=== PATIENT | female | born 1990 | race Caucasian/White ===

== ENCOUNTER → 2017-07-03 16:03 | Outpatient (CLI) | payer BC, SELFPAY ==
[2017-07-03 18:09] LABS: Chlamydia Trachomatis by PCR Negative (Negative); Neisserai gonorrhoeae by PCR Negative (Negative); Probe Check PASS; Sample Adequacy Control PASS; Specimen Processing Control PASS
[2017-07-06 14:21] LABS: HPV Reflexed? NOT INDICATED
== END ==
PROVIDERS: Visit Provider Obstetrics & Gynecology
DX: Z12.4 Encounter for screening for malignant neoplasm of cervix (principal); Z11.3 Encounter for screening for infections with a predominantly sexual mode of transmission; Z34.81 Encounter for supervision of other normal pregnancy, first trimester
CPT/HCPCS: 87491; 87591; 88175; G0145

== ENCOUNTER → 2017-07-12 11:58 | Outpatient (CLI) | payer BC, SELFPAY ==
[2017-07-12 13:39] LABS: Absolute Lymphocyte Count 1.83 X10^3/ul (0.83-4.51); Absolute Neutrophil Count 8.4 X10^3/uL (2.0-7.7); Basophil# 0.01 X10^3/uL; Basophil% 0.1 % (0-1); Eosinophil# 0.17 X10^3/uL; Eosinophils% 1.6 % (0-5); Hematocrit 41.5 % (37-47); Hemoglobin 14.1 g/dl (12.0-15.0); Lymphocyte # 1.83 X10^3/ul (4.0); Lymphocyte % 16.7 % (19-41); Mean Corpuscular Volume 88.3 fL (81-99); Mean Platelet Vol. 9.9 fl (6.2-12.0); Monocyte# 0.52 X10^3/uL; Monocyte% 4.7 % (0-10); Neutrophil % 76.7 % (47-70); Platelet Count 321 K/mm3 (150-450); RBC Distribution Width CV 13.3 % (11.6-14.6); RBC Distribution Width SD 43.2 fl (35.1-43.9)
[2017-07-12 13:40] LABS: POSITIVE COUNT NO; POSITIVE DIFFERENTIAL NO; POSITIVE MORPHOLOGY NO
[2017-07-12 13:46] LABS: Color, Urine Yellow (Yellow); Glucose, Dipstick Normal (Normal); Ketone-Dipstick 15 mg/dl (Negative); Leukocyte Esterase-Dipstick Negative /ul (Negative); Nitrite-Dipstick Negative (Negative); Occult Blood-Urine Negative /ul (Negative); Protein-Dipstick Negative (Negative); Urine Bilirubin Dipstick Negative (Negative); Urine Clarity Clear (Clear); Urine Urobilinogen Normal (Normal)
[2017-07-12 14:00] LABS: Thyroid Stim Hormone (TSH) 1.75 uIU/mL (0.358-3.74)
[2017-07-12 14:38] LABS: HIV - WCH Non-Reactive (Nonreactive); Rubella IgG 320.6 IU/mL
[2017-07-13 09:16] LABS: HEPATITIS B SURFACE AG Negative (Negative)
[2017-07-13 09:17] LABS: Hep C Antibodies <0.1 s/co ratio (0.0-0.9)
[2017-07-14 01:13] LABS: Prenatal RPR NONREACTIVE (NONREACTIVE)
== END ==
PROVIDERS: Visit Provider Obstetrics & Gynecology
DX: Z34.81 Encounter for supervision of other normal pregnancy, first trimester (principal)
CPT/HCPCS: 36415; 81002; 84443; 85025; 86703; 86762; 86803; 87340

== ENCOUNTER → 2017-12-04 08:36 | Outpatient (CLI) | payer BC, SELFPAY ==
[2017-12-04 11:00] LABS: Hematocrit 38.2 % (37-47); Hemoglobin 13.1 g/dl (12.0-15.0); Mean Corp Hgb Conc 34.3 g/gl (32-36); Mean Corpuscular Hgb 30.7 pg (27.0-32.0); Mean Corpuscular Volume 89.5 fL (81-99); Mean Platelet Vol. 10.3 fl (6.2-12.0); Platelet Count 258 K/mm3 (150-450); RBC Distribution Width CV 14.1 % (11.6-14.6); RBC Distribution Width SD 45.1 fl (35.1-43.9); Red Blood Count 4.27 M/mm3 (4.2-5.4); White Blood Count 11.4 K/mm3 (4.4-11.0)
[2017-12-04 11:02] LABS: Scan Indicated on CBC? Y/N NO
[2017-12-04 11:11] LABS: Glucose Challenge Gest 1H 50g 134 mg/dL (70-140)
== END ==
PROVIDERS: Visit Provider Obstetrics & Gynecology
DX: Z34.83 Encounter for supervision of other normal pregnancy, third trimester (principal)
CPT/HCPCS: 36415; 82950; 85027

== ENCOUNTER → 2018-01-29 13:48 | Outpatient (CLI) | payer BC, SELFPAY ==
--- OUTSIDE RECORDS SUMMARY | 2018-03-13 11:07 | XMS RPT_ITS ---
:1990 Author Organization OHIP Support Name Relationship Address Phone [facility] Unavailable [address] [place] [address] FELTER, CINTHIA/JULIUS Unavailable [address] + [place] [address] MORENO MARIE Unavailable [address] + [place], [place] [id number] [place] [address] [facility] Unavailable [address] [place] [address] FELTER, CINTHIA/JULIUS Unavailable [address] + [place] [address] MORENO MARIE Unavailable [address] + [place] [address] [facility] Unavailable / [address] [place] [address] FELTER, CINTHIA/JULIUS Unavailable [address] + [place] [address] [facility] Unavailable / [address] [place] [address] FELTER, CINTHIA/JULIUS Unavailable [address] + [place] [address] [facility] Unavailable / [address] [place] [address] FELTER, CINTHIA/JULIUS Unavailable [address] + [place] [address] [facility] Unavailable / [address] [place] [address] FELTER, CINTHIA/JULIUS Unavailable [address] + [place] [address] Care Team Providers Name Role Phone DR. JADON KOROMA DO Primary Care Unavailable CADE ESPINAL, DR. DUNN Attending Unavailable Joe Jefferson Attending Unavailable Joe Jefferson Referring Unavailable Melissa Weathers Attending Unavailable Melissa Weathers Attending Unavailable Melissa Weathers Attending Unavailable Melissa Weathers Attending Unavailable Melissa Weathers Attending Unavailable Melissa Weathers Referring Unavailable PROBLEMS PROBLEMS DATE TYPE CONDITION / CODE ATTENDING STATUS SOURCE 01/29/2018 Unknown Z36.85 - Encounter Melissa Weathers Active [facility] for Community screening for Hospital Streptococcus B / Repository Z36.85(ICD-10) 12/04/2017 Unknown Z34.83 - Encounter Melissa Weathers Active [place] for supervision of Community other normal Hospital , third Repository trimester / Z34.83(ICD-10) 07/12/2017 Unknown Z34.81 - Encounter Melissa Weathers Active [facility] for supervision of Community other normal Hospital , first Repository trimester / Z34.81(ICD-10) 07/07/2017 Unknown Z12.4 - Encounter Melissa Weathers Active [facility] for screening for Community malignant neoplasm Hospital of cervix / Repository Z12.4(ICD-10) PROCEDURES PROCEDURES No Procedure Records FoundRESULTS RESULTS CBC-COMPLETE BLOOD CNT Collected: 02/12/2018 Status: F Source: [place]EL[place] NO DIFF 1:24 PM [facility] REPOSITORY TYPE CODE TESTS RESULT OUT OF RANGE REFERENCE UNITS LAB L100.1000 4.4-11.0 K/mm3 Normal WBC 9.7 LAB L100.1200 4.2-5.4 M/mm3 Low RBC 4.14 LAB L100.1300 12.0-15.0 g/dl Normal HGB 12.2 LAB L100.1400 37-47 % Low HCT 36.1 LAB L100.1500 81-99 fL Normal MCV 87.2 LAB L100.1600 27.0-32.0 pg Normal MCH 29.5 LAB L100.1700 32-36 g/gl Normal MCHC 33.8 LAB L100.1810 11.6-14.6 % Normal RDW CV 14.0 LAB L100.1820 35.1-43.9 fl Normal RDW SD 43.5 LAB L100.1900 150-450 K/mm3 Normal PLT 220 LAB L100.2000 6.2-12.0 fl Normal MPV 10.6 Performed By: #### L100.0500 #### [facility] [place], [address] PROTHROMBIN TIME W/INR Collected: 02/12/2018 Status: F Source: [place]ELI 1:24 PM [facility] REPOSITORY TYPE CODE TESTS RESULT OUT OF RANGE REFERENCE UNITS LAB L300.4150 11.7-14.9 SECONDS Normal PROTIME 12.5 LAB L300.4200 Normal INR 0.9 Performed By: #### L300.3900, L300.4310 #### [facility] [address] [place], [address] PARTIAL THROMBOPLAST Collected: 02/12/2018 Status: F Source: [place] TIME 1:24 PM [facility] REPOSITORY TYPE CODE TESTS RESULT OUT OF RANGE REFERENCE UNITS LAB L300.4310 24.1-36.2 Seconds Normal PTT 24.6 Performed By: #### L300.3900, L300.4310 #### [facility] [address] [place], [address] SERUM CREATININE AND Collected: 02/12/2018 Status: F Source: [place] GFR 1:24 PM [facility] REPOSITORY TYPE CODE TESTS RESULT OUT OF RANGE REFERENCE UNITS LAB L501.1100 0.55-1.02 mg/dL Low 0.44 CREAT,SERUM Result Comment: The validity of the calculated GFR AND GFRAA in patients over 70 years has not been determined. Clinical correlation is essential. LAB L501.1110 >60 mL/min Normal EST GFR 181 Result Comment: Non- GFR Calc LAB L501.1115 >60 mL/min Normal EST GFR - AA 220 Result Comment: GFR Calc Performed By: #### L501.1105, L501.1400, L501.4100, L501.4405 #### [facility] [address] [place], [address] URIC ACID Collected: 02/12/2018 Status: F Source: [place]ELI 1:24 PM [facility] REPOSITORY TYPE CODE TESTS RESULT OUT OF RANGE REFERENCE UNITS LAB L501.1400 2.6-6.0 mg/dL Normal URIC 3.7 Result Comment: The drugs N-Acetylcysteine and Metamizole may falsely depress this assay. Performed By: #### L501.1105, L501.1400, L501.4100, L501.4405 #### [facility] [address] [facility] [place], [address] AST(SGOT) Collected: 02/12/2018 Status: F Source: [place]ELI 1:24 PM [facility] REPOSITORY TYPE CODE TESTS RESULT OUT OF RANGE REFERENCE UNITS LAB L501.4100 15-37 U/L Low AST 13 Performed By: #### L501.1105, L501.1400, L501.4100, L501.4405 #### [facility] [address] [place], [address] ALANINE AMINOTRANSFERAS Collected: 02/12/2018 Status: F Source: FELI (SGPT) 1:24 PM [facility] REPOSITORY TYPE CODE TESTS RESULT OUT OF RANGE REFERENCE UNITS LAB L501.4405 13-56 U/L Normal ALT 18 Performed By: #### L501.1105, L501.1400, L501.4100, L501.4405 #### [facility] [place], [address] PROTEIN+CREATININE Collected: Status: F Source: FELI RATIO,URINE 02/12/2018 1:15 PM [facility] REPOSITORY TYPE CODE TESTS RESULT OUT OF RANGE REFERENCE UNITS LAB L501.1200 NO RANGE EST. mg/dL Normal UR CREAT 76.40 LAB L501.1930 <11.9 mg/dL High 16.3 PROTEIN,UR.R AN. LAB L501.1940 0-200 mg/g CRE High PROT:CRE 213 RATIO Performed By: #### L501.0900 #### [facility] [place], [address] Observed: 01/29/2018 Status: F Source: FELI CULTURE, GROUP B 1:30 PM [facility] STREPTOCOCCUS REPOSITORY Comments: VAGINAL/RECTAL PATI Culture ORGANISM 1: Streptococcus agalactiae (B) Amount Growth Growth Streptococcus agalactiae (B): REACTION Ampicillin $ <=0.25 S Clindamycin $$ <=0.25 S Inducable Clindamycin Resistan - Linezolid $$$$ <=2 S Vancomycin $ 0.5 S (NF) indicates non-formulary drug at [facility]. Approval by Infectious Disease Specialist required before non-formulary drugs may be ordered and/or dispensed. * CLSI guidelines does not recommend testing of cephalosporins. This interpretation is deduced from Beta-lactam/penicillin results. Performed By: #### M100.1800 #### [facility] [address] [place], [place], [address] CBC-COMPLETE BLOOD CNT Collected: 12/04/2017 Status: F Source: [place]EL[place] NO DIFF 8:45 AM [facility] REPOSITORY TYPE CODE TESTS RESULT OUT OF RANGE REFERENCE UNITS LAB L100.1000 4.4-11.0 K/mm3 High WBC 11.4 LAB L100.1200 4.2-5.4 M/mm3 Normal RBC 4.27 LAB L100.1300 12.0-15.0 g/dl Normal HGB 13.1 LAB L100.1400 37-47 % Normal HCT 38.2 LAB L100.1500 81-99 fL Normal MCV 89.5 LAB L100.1600 27.0-32.0 pg Normal MCH 30.7 LAB L100.1700 32-36 g/gl Normal MCHC 34.3 LAB L100.1810 11.6-14.6 % Normal RDW CV 14.1 LAB L100.1820 35.1-43.9 fl High RDW SD 45.1 LAB L100.1900 150-450 K/mm3 Normal PLT 258 LAB L100.2000 6.2-12.0 fl Normal MPV 10.3 Performed By: #### L100.0500 #### [facility] [address] [place], [address] GLUCOSE CHALLENGE GEST Collected: 12/04/2017 Status: F Source: FELI 1H 50G 8:45 AM [facility] REPOSITORY TYPE CODE TESTS RESULT OUT OF RANGE REFERENCE UNITS LAB L501.0250 70-140 mg/dL Normal GLU GEST 134 50g 1H Performed By: #### L501.0250 #### [facility] [address] [facility] [place], [address] CBC W/DIFF, AUTOMATED Collected: 07/12/2017 Status: F Source: [place]ELI 12:09 PM [facility] REPOSITORY TYPE CODE TESTS RESULT OUT OF RANGE REFERENCE UNITS LAB L100.1000 4.4-11.0 K/mm3 Normal WBC 11.0 LAB L100.1200 4.2-5.4 M/mm3 Normal RBC 4.70 LAB L100.1300 12.0-15.0 g/dl Normal HGB 14.1 LAB L100.1400 37-47 % Normal HCT 41.5 LAB L100.1500 81-99 fL Normal MCV 88.3 LAB L100.1600 27.0-32.0 pg Normal MCH 30.0 LAB L100.1700 32-36 g/gl Normal MCHC 34.0 LAB L100.1810 11.6-14.6 % Normal RDW CV 13.3 LAB L100.1820 35.1-43.9 fl Normal RDW SD 43.2 LAB L100.1900 150-450 K/mm3 Normal PLT 321 LAB L100.2000 6.2-12.0 fl Normal MPV 9.9 LAB L100.2100 47-70 % High NEUT% 76.7 LAB L100.2200 19-41 % Low LY% 16.7 LAB L100.2300 0-10 % Normal MONO% 4.7 LAB L100.2400 0-5 % Normal EO% 1.6 LAB L100.2500 0-1 % Normal BASO% 0.1 LAB L100.2550 0.0-0.9 % Normal IM GRAN % 0.200 Result Comment: IG% - Immature Granulocytes (promyelocytes, myelocytes and metamyelocytes) > 1% indicates that a LEFT SHIFT is Present. LAB L100.2620 2.0-7.7 X10 3/uL High Absolute Neut 8.4 LAB L100.2720 0.83-4.51 X10 3/ul Normal Absolute Lymph 1.83 Performed By: #### L100.0100 #### [facility] [address] [place], [address] URINALYSIS, ROUTINE Collected: 07/12/2017 Status: F Source: [place]EL[place] (DIPSTICK) 12:09 PM [facility] REPOSITORY Order Comment: How was Urine Obtained? Urine, Random TYPE CODE TESTS RESULT OUT OF RANGE REFERENCE UNITS LAB L400.3000 Yellow COLOR Normal Yellow LAB L400.3050 Clear Normal CLARITY Clear LAB L400.3200 Normal mg/dl Normal GLUCOSE, UR Normal LAB L400.3300 Negative mg/dL Normal BILIRUBIN URINE Negative LAB L400.3400 Negative mg/dl High 15 KETONE UR LAB L400.3465 1.002-1.030 Normal SP.GR. DIPSTX 1.010 LAB L400.3550 5.0 - 8.0 pH UR Normal 6.0 LAB L400.3600 Negative mg/dl PROT Normal DIPSTX Negative LAB L400.3700 Normal mg/dl Normal UROBILI Normal LAB L400.3750 Negative Normal NITRITE UR Negative LAB L400.3780 Negative /ul Normal OCCULT BLOOD-UR Negative LAB L400.3800 Negative /ul LEUK Normal ESTERASE Negative Performed By: #### L400.2010 #### [facility] [address] [place], [place], [address] THYROID STIM HORMONE Collected: 07/12/2017 Status: F Source: [place] (TSH) 12:09 PM [facility] REPOSITORY TYPE CODE TESTS RESULT OUT OF RANGE REFERENCE UNITS LAB L501.9520 0.358-3.74 uIU/mL Normal TSH 1.75 Performed By: #### L501.9520 #### [facility] [address] [place], [place], [address] T AND S-NO Collected: 07/12/2017 Status: F Source: [place] CHARGE W/PNP 12:09 PM [facility] REPOSITORY Order Comment: Reason for Type AND Screen/Red Cells: Surgery? N TYPE CODE TESTS RESULT OUT OF RANGE REFERENCE UNITS LAB B10.0800 B Normal BLOOD POSITIVE TYPE GEL LAB B100.4050 Normal Ab SCREEN NEGATIVE GEL Performed By: #### B100.7550 #### [facility] [address] [place], [place], [address] RUBELLA IGG Collected: 07/12/2017 Status: F Source: [place] 12:09 PM [facility] REPOSITORY TYPE CODE TESTS RESULT OUT OF RANGE REFERENCE UNITS LAB L509.4000 IU/mL Normal Rubella IgG 320.6 Result Comment: Antibody results Interpretation of Immune Status < 5 IU/ml Presumed Non-immune 5 - < 10 IU/ml Equivocal > or = 10 IU/ml Presumed Immune Performed By: #### L509.4000, L3890.6005 #### [facility] [address] [facility] [place], [place], [id number] HIV - WCH Collected: 07/12/2017 Status: F Source: [place] 12:09 PM [facility] REPOSITORY TYPE CODE TESTS RESULT OUT OF RANGE REFERENCE UNITS LAB L3890.6005 Nonreactive Normal HIV - [facility] Non-Reactive Performed By: #### L509.4000, L3890.6005 #### [facility] [address] [place], [place], [id number] HEPATITIS B SURFACE Collected: 07/12/2017 Status: F Source: [place] AG 12:09 PM [facility] REPOSITORY TYPE CODE TESTS RESULT OUT OF RANGE REFERENCE UNITS LAB L3100.0400 Negative Normal HB Negative SURF AG Result Comment: Performed at: [address] [id number] Supervisor [employer]: Edwardo Whelan PhD, Phone: [phone] Performed By: #### L3100.0390, L3100.0625 #### [facility] (refer to report for specific site) refer to report for address and phone number HEPATITIS C ANTIBODIES Collected: 07/12/2017 Status: F Source: [place] 12:09 PM [facility] REPOSITORY TYPE CODE TESTS RESULT OUT OF RANGE REFERENCE UNITS LAB L3100.0650 0.0-0.9 s/co ratio Normal HEP C AB <0.1 Result Comment: Negative: < 0.8 Indeterminate: 0.8 - 0.9 Positive: > 0.9 The CDC recommends that a positive HCV antibody result be followed up with a HCV Nucleic Acid Amplification test (362901). Performed By: #### L3100.0390, L3100.0625 #### [facility] (refer to report for specific site) refer to report for address and phone number RPR Collected: 07/12/2017 Status: F Source: [place] 12:09 PM [facility] REPOSITORY TYPE CODE TESTS RESULT OUT OF REFERENCE UNITS RANGE LAB L700.5100 NONREACTIVE Normal RPR NONREACTIVE Performed By: #### L700.5100 #### [facility] [address] [place], [address] CT/NG WCH BY PCR Collected: 07/03/2017 Status: F Source: [place] 11:30 AM [facility] REPOSITORY TYPE CODE TESTS RESULT OUT OF RANGE REFERENCE UNITS LAB L8200.2100 Negative Normal Chlam Negative Trac PCR LAB L8200.2200 Negative Normal NG by Negative PCR Performed By: #### L8200.2000 #### [facility] [address] [place], [address] PAP I-G W/RFX HRHPV Collected: 07/03/2017 Status: F Source: [place] 11:30 AM [facility] REPOSITORY Order Comment: CYTOLOGY INFORMATION: - CLINICAL INFORMATION: - DATE LMP/MENOPAUSE: LMP/ NOT GIVEN - COLLECTION VIAL: Thin Prep Vial - SQL BI DEVELOPER SOURCE: CERVICAL/ENDOCERVICAL - COLLECTION TECHNIQUE: BRUSH/SPATULA Specimen Comment: [id number] Specimen Comment: No. of containers..01 ThinPrep Vial TYPE CODE TESTS RESULT OUT OF RANGE REFERENCE UNITS LAB L7400.0800 . Normal DIAGN Comment Result Comment: NEGATIVE FOR INTRAEPITHELIAL LESION AND MALIGNANCY. LAB L7400.0900 . Normal ADEQ Comment Result Comment: Satisfactory for evaluation. Endocervical and/or squamous metaplastic cells (endocervical component) are present. LAB L7400.1400 . Normal PERFORM Comment Result Comment: Dank Deng, Sign Manufacturer (ASCP) LAB L7400.2575 . Normal TEST METHOD Comment Result Comment: This liquid based ThinPrep(R) pap test was screened with the use of an image guided system. LAB L7400.2600 . Normal . COMM LAB L7400.2700 . Normal PAPSMR Comment Result Comment: The Pap smear is a screening test designed to aid in the detection of premalignant and malignant conditions of the uterine cervix. It is not a diagnostic procedure and should not be used as the sole means of detecting cervical cancer. Both false-positive and false-negative reports do occur. LAB L7400.2800 . Normal HPV RFLX Comment Result Comment: The HPV DNA reflex criteria were not met with this specimen result therefore, no HPV testing was performed. Performed at: [facility] [id number] Supervisor [employer]: Taylor Navas MD, Phone: [phone] Performed By: #### L7400.0350 #### [facility] (refer to report for specific site) refer to report for address and phone number VARIS Collected: 05/16/2017 Status: F Source: [facility] 10:50 AM [facility] REPOSITORY TYPE CODE TESTS RESULT OUT OF REFERENCE UNITS RANGE LAB VARIS(LOIN C) Varicella Imm Pos St Result Comment: This immune status assay detects antibody to Varicella Zoster virus. Interpret results in conjunction with clinical history. Positive: Reactive for antibodies to Varicella IgG. If clinically indicated, order Varicella IGM to rule out recent infection. Equivocal: Equivocal for antibodies to Varicella IgG. Suggest repeat testing in 10-14 days. Negative: Non-reactive for antibodies to Varicella IgG. Sera will be held 4-6 weeks if further testing is required. Performed By: #### VARIS #### [place] [address] ALLERGIES ALLERGIES DATE TYPE / CODE NAME / CODE REACTION SEVERITY SOURCE 02/16/2018 Drug No Known Unknown [facility] Allergy/4160 Allergies/F00 Hospital [address]96(SNOMED 8416081(RXNOR Repository CT) M) ENCOUNTERS ENCOUNTERS ADMIT/DISCHARGE ACCOUNT NUMBER ADMITTING ENCOUNTER LOCATION SOURCE CLASS 02/16/2018/02/17/[id number] ding:WPOUTRo Repository om: WP014 02/12/2018 [id number] Ambulatory [facility] ding:WOBLAB Repository 01/29/2018 [id number] Ambulatory [facility] ding:LABSPEC Repository 01/23/2018/01/24/20 [id number] Ambulatory BBuilding:[address] Repository 12/04/2017 [id number] Ambulatory [facility] ding:WOBLAB Repository 07/12/2017 [id number] Ambulatory [facility] ding:WOBLAB Repository 07/03/2017 [id number] Ambulatory [facility] ding:LABSPEC Repository PAYERS PAYERS ENCOUNTER GUARANTOR PAYER SUBSCRIBER SOURCE 02/16/2018 NA AGUILARS225 Primary MORENO SANDSDOB: [place] Insurance:[place]HE[place]olic [id number] Number: Hospital [address]Vak: (330) [id number] Repository [phone] () Date:2963-42-10QK [address] [place] [address]JT: 02/16/2018 Secondary NOT GIVENUNK [facility] Insurance:SELF PAY [facility] Effective Repository Date:2018-02-16 02/12/2018 NA CONNER25 Primary MORENO SANDSDOB: [place] Insurance:ANTHEMPolic [id number] Number: Hospital [id number]: (330) [id number] Repository [phone] () Date:0090-74-16QR [address] [place] [address]BO: 02/12/2018 Secondary NOT GIVENUNK [place] Insurance:SELF PAY [facility] Number: Effective Repository Date:2018-02-12 01/29/2018 NA CONNER25 Primary MORENO SANDSDOB: [place] Insurance:ANTHEMPolic [id number] Number: Hospital [address]Wtb: (330) [id number] Repository [phone] () Date:5418-44-54QM [address]TXKTG [place] [address]YH: 01/29/2018 Secondary NOT GIVENUNK [place] Insurance:SELF PAY [facility] Number: Effective Repository Date:2018-01-29 01/23/2018 NA DOUGHERTYOB: Primary NA AGUILARSDOB: [place] [facility] Insurance:ANTHEM Floxx [id number] [facility] Repository [place], [place] Number: [place], [place] [address]Hlo: ([phone] [id number]: (HP) Date:2018-01-23 [phone] (HP)Tel: ([phone]) Name:[facility] LAMIN () MAI Lopez [address]QW: 12/04/2017 NA ESPINOZA Primary CONWAY SANDSDOB: [place] Insurance:ANTHEMPolic [id number] Number: Hospital [address]Owj: 330 [id number] Repository [phone] (HP) Date:9686-63-09XJ [address] [address]AH: 12/04/2017 Secondary NOT GIVENUNK [place] Insurance:SELF PAY [facility] Number: Effective Repository Date:2017-12-04 07/12/2017 NA ESPINOZA Primary CONWAY SANDSDOB: [place] Insurance:ANTHEMPolic [id number] Number: Hospital [address]Hbq: 330 [id number] Repository [phone] () Date:3827-60-48HS [address] [address]KJ: 07/12/2017 Secondary NOT GIVENUNK [place] Insurance:SELF PAY [facility] Number: Effective Repository Date:2017-07-12 07/03/2017 NA ESPINOZA S Primary [facility] [place] Insurance:[place] Number: Hospital [id number]: . (HP) [id number] Repository Date:5670-28-48YW [address] [address]RH: 07/03/2017 Secondary NOT GIVENUNK [place] Insurance:SELF PAY [facility] Number: Effective Repository Date:2017-07-03
== END ==
PROVIDERS: Visit Provider Obstetrics & Gynecology
DX: Z36.85 Encounter for antenatal screening for Streptococcus B (principal)
CPT/HCPCS: 87077; 87081; 87186

== ENCOUNTER → 2018-02-12 13:21 | Outpatient (CLI) | payer BC, SELFPAY ==
[2018-02-12 13:53] LABS: Protein, Urine (Random) 16.3 mg/dL (<11.9); Protein:Creat Ratio 213 mg/g CRE (0-200)
[2018-02-12 13:58] LABS: Hematocrit 36.1 % (37-47); Hemoglobin 12.2 g/dl (12.0-15.0); Mean Corp Hgb Conc 33.8 g/gl (32-36); Mean Corpuscular Hgb 29.5 pg (27.0-32.0); Mean Corpuscular Volume 87.2 fL (81-99); Mean Platelet Vol. 10.6 fl (6.2-12.0); Platelet Count 220 K/mm3 (150-450); RBC Distribution Width SD 43.5 fl (35.1-43.9); Red Blood Count 4.14 M/mm3 (4.2-5.4); White Blood Count 9.7 K/mm3 (4.4-11.0)
[2018-02-12 14:02] LABS: Scan Indicated on CBC? Y/N NO
[2018-02-12 14:13] LABS: International Normalized Ratio 0.9; Prothrombin Time (Protime)PT. 12.5 SECONDS (11.7-14.9)
[2018-02-12 14:14] LABS: Partial Thromboplast Time 24.6 Seconds (24.1-36.2)
[2018-02-12 14:28] LABS: AST(SGOT) 13 U/L (15-37); Alanine Aminotransfer ALT/SGPT 18 U/L (13-56); Creatinine, Serum 0.44 mg/dL (0.55-1.02); EST Glomerular Filtration Rate 181 mL/min (>60); Est Glom Filt Rate - Afr Amer 220 mL/min (>60); Uric Acid 3.7 mg/dL (2.6-6.0)
== END ==
PROVIDERS: Visit Provider Obstetrics & Gynecology
DX: O13.9 Gestational [pregnancy-induced] hypertension without significant proteinuria, unspecified trimester (principal)
CPT/HCPCS: 36415; 82565; 82570; 84156; 84450; 84460; 84550; 85027; 85610; 85730

== ENCOUNTER 2018-02-16 17:55 | Outpatient (CLI) | payer BC, SELFPAY ==
[2018-02-16 18:41] VITALS: BMI 34.5
--- NOTE | 2018-02-17 08:01 | OB.TRI.HP_ITS ---
History of Present Illness Date of Service: 02/16/18 Was patient seen by the physician?: No Reason For Visit: RULE OUT LABOR Date of Service: 02/16/18 Final CYDNEY: 02/26/18 Final CYDNEY Source: US <20 weeks Gestational age: 38 Weeks and 5 Days History of Present Illness: c/o contractions Allergies No Known Allergies Allergy (Verified 02/16/18 18:42) Physical Exam General: Alert, Oriented x3, Cooperative, No apparent distress Cardiovascular: Regular rate, Regular Rhythm Lungs: Clear to auscultation, Normal air movement Abdomen: Soft, Non Tender, Non-Distended, Gravid, Appropriate for Gestational Age Extremities:: No edema Neurological: Neuro grossly intact RELIGIOUS EDUCATION COORDINATOR: Normal external genitalia Estimated gestational size: Appropriate for gestational size Presentation: Cephalic Cervix Dilation (cm): 1 Station: -3 Effacement (%): 25 NST - FHR Rate Baby A Baseline: 120s Variability:: Moderate Accelerations:: 15 x 15 Decelerations:: None, Early NST Reactive:: Yes, Appropriate for gestational age FHR Category:: Category I Uterine Activity:: irregular Impression/Plan Observed with no cervical change and no regular contraction pattern. No signs of SROM. Reassuring FHR tracing.
--- OUTSIDE RECORDS SUMMARY | 2018-05-23 07:36 | XMS RPT_ITS ---
:1990 Author Organization OHIP Support Name Relationship Address Phone [facility] Unavailable [address] [place] [address] FELTER, CINTHIA/JULIUS Unavailable [address] + [place] [address] MORENO MARIE Unavailable [address] + [place] [address] [facility] Unavailable [address] [place] [address] FELTER, CINTHIA/JULIUS Unavailable [address] + [place] [address] MORENO MARIE Unavailable [address] + [place] [address] [facility] Unavailable [address] [place] [address] FELTER, CINTHIA/JULIUS Unavailable [address] + [place] [address] MORENO MARIE Unavailable [address] + [place] [address] [facility] Unavailable / [address] [place] [address] FELTER, CINTHIA/JULIUS Unavailable [address] + [place] [address] FELTER, CINTHIA Unavailable Unavailable Unavailable [facility] Unavailable / [address] [place] [address] FELTER, CINTHIA/JULIUS Unavailable [address] + [place] [address] [facility] Unavailable / [address] [place] [address] FELTER, CINTHIA/JULIUS Unavailable [address] + [place] [address] [facility] Unavailable / [address] [place] [address] FELTER, CINTHIA/JULIUS Unavailable [address] + [place] [address] Care Team Providers Name Role Phone CADE ESPINAL, DR. DUNN Attending Unavailable GA DO, DR. DIOP Primary Care Unavailable CADE ESPINAL, DR. DUNN Attending Unavailable PARUL ELAINE Primary Care Unavailable Seals, Joe Attending Unavailable Seals, Joe Referring Unavailable Benekos, Melissa Attending Unavailable Benekos, Melissa Referring Unavailable Benekos, Melissa Attending Unavailable Benekos, Melissa Attending Unavailable Benekos, eMlissa Attending Unavailable Benekos, Melissa Admitting Unavailable Benekos, Melissa Attending Unavailable Benekos, Melissa Referring Unavailable Yumiko Zuleta Primary Care Unavailable Cade, Melissa Attending Unavailable PROBLEMS PROBLEMS DATE TYPE CONDITION / CODE ATTENDING STATUS SOURCE 01/29/2018 Unknown Z36.85 - Encounter Melissa Weathers Active [place] [facility] screening for [facility] Streptococcus B / Repository Z36.85(ICD-10) 12/04/2017 Unknown Z34.83 - Encounter Melissa Weathers Active [place]eli for [...] PROCEDURES PROCEDURES No Procedure Records FoundRESULTS RESULTS DISCHARGE INSTRUCTION Observed: 2018 Status: F Source: FELI 3:23 PM [facility] HOSPITAL REPOSITORY [facility] Medical Records Department [address] [place] [address] Instructions for Home/Discharge Instructions 03/01/18 1521 MR#: [id number] Acct: [id number] Name: NA MARIE Rep #: [id number] : 1990 28 From: Melissa Weathers MD PCP: Status: ADM IN Discharge Diet: No Restrictions Discharge Activity: May Shower, May Take a Tub Bath Return to work on:: 04/16/18 May resume sexual activity in: 4-6 weeks Additional Instructions: If you experience any of the following, contact your healthcare provider. * Bleeding that soaks a pad every hour for 2 hours * Fever 100.4 or higher * Unrelieved abdominal pain * Problems urinating (including inability to urinate or burning while urinating). * Visual changes * Severe headache * Flu-like symptoms * Pain or redness in one of both of your breasts * Pain, warmth, tenderness or swelling in your legs, especially the calf area * Frequent nausea and vomiting * Symptoms of depression or anxiety If you experience any of the following, call 911 or go to the nearest Emergency Room. * Chest pain * Problems breathing * Seizure activity * Partial or complete paralysis of a body part, slurred speech, weakness or drooping of the face, or a sudden inability to walk or hold your balance Allergies/Adverse Reactions: Allergies No Known Allergies Allergy (Verified 02/16/18 18:42) Medications to take at Discharge Vits [Prenatabs FA] 1 tablet PO DAILY 02/16/18 Please Follow Up With: Melissa Weathers MD - [phone] When: Call to make an appointment with your doctor in 6 weeks. Test Results: Test results from this visit will be discussed in further detail at your follow-up appointment, if applicable. Proposed Discharge Date: 03/03/18 03/01/18 1523 <Electronically signed by Melissa Weathers MD> Date Melissa Weathers MD CC: Signed OPERATIVE REPORT Observed: 2018 Status: F Source: [place] 3:21 PM [facility] REPOSITORY [facility] Medical Records Department [address] [place] [address] Operative Report 03/01/18 1514 MR#: [id number] Acct: [id number] Name: NA MARIE Rep #: [id number] : 1990 28 From: Melissa Weathers MD PCP: Status: ADM IN Y Location: PP004-2 Vaginal Delivery Maternal Presentation: Active Labor 40 3/7 wk spontaneous labor. Amniotic Membrane Rupture Type: Artificial Amniotic Fluid Description: Clear Final CYDNEY: 02/26/18 Gestational age: 40 Weeks and 3 Days Date of Procedure: 03/01/18 Pre-Operative Diagnosis: 40 3/7 wk labor. Post-Operative Diagnosis: Same Surgery/ Procedure Performed: Spontaneous Vaginal Delivery Type of Anesthesia: None Description of Procedure: of a parks viable female over intact perineum to lacerations. Head delivered KARENA. With continued maternal pushing, and rotation of shoulders R arm delivered. Baby then delivered. OP and nares bulb suctioned after delivery. to maternal abdomen for drying and stimulation. Vigorous cry noted. Delayed cord clamping. Cord then clamped x two and cut. Routine gases collected. PP exam: 1st deg vaginal laceration and bilateral anterior labia minora lacerations. All hemostatic. no repair. Placenta delivered by spont expulsion. 3V cord, normal appearing , intact with trailing membranes. Presentation: Vertex Placental Delivery Description: Spontaneous Placenta Disposition: [facility] Cord Vessel Description: 3 Vessels Cord Gases drawn per routine: ABG, VBG Cord Entanglement: None Estimated Blood Loss: 350 A gender: Female (1 minute): 8 (5 minute): 9 Episiotomy Description: None Laceration: Perineal Extension/lac, Vaginal Extension/lac, 1st degree Medications given after delivery: IV Pitocin Complications: None 03/01/18 1521 <Electronically signed by Melissa Weathers MD> Date Melissa Weathers MD CC: Melissa Weathers MD Signed CBC-COMPLETE BLOOD CNT Collected: 2018 Status: F Source: FELI NO DIFF 5:15 AM [facility] REPOSITORY TYPE CODE TESTS RESULT OUT OF RANGE REFERENCE UNITS LAB L100.1000 4.4-11.0 K/mm3 Normal WBC 9.4 LAB L100.1200 4.2-5.4 M/mm3 Normal RBC 4.25 LAB L100.1300 12.0-15.0 g/dl Normal HGB 12.3 LAB L100.1400 37-47 % Low HCT 36.3 LAB L100.1500 81-99 fL Normal MCV 85.4 LAB L100.1600 27.0-32.0 pg Normal MCH 28.9 LAB L100.1700 32-36 g/gl Normal MCHC 33.9 LAB L100.1810 11.6-14.6 % Normal RDW CV 14.3 LAB L100.1820 35.1-43.9 fl High RDW SD 44.0 LAB L100.1900 150-450 K/mm3 Normal PLT 216 LAB L100.2000 6.2-12.0 fl Normal MPV 10.4 Performed By: #### L100.0500 #### [facility] Laboratory [address] [place], [place], [address] TYPE AND SCREEN Collected: 2018 Status: F Source: FELI 5:15 AM [facility] REPOSITORY Order Comment: Reason for Type AND Screen/Red Cells: ROUTINE TYPE CODE TESTS RESULT OUT OF RANGE REFERENCE UNITS LAB B10.0800 B Normal BLOOD TYPE GEL POSITIVE LAB B100.4000 Normal Antibody NEGATIVE Screen Performed By: #### B101.7450 #### [facility] Laboratory [address] [place], [address] CBC-COMPLETE BLOOD CNT Collected: 02/12/2018 Status: F Source: FELI NO DIFF 1:24 PM [facility] REPOSITORY TYPE CODE TESTS RESULT OUT OF [...] MPV 10.6 Performed By: #### L100.0500 #### [facility] Laboratory [address] [place], [address] PROTHROMBIN TIME W/INR Collected: 02/12/2018 Status: F Source: [place] 1:24 PM [facility] REPOSITORY TYPE CODE TESTS RESULT OUT OF RANGE REFERENCE UNITS LAB L300.4150 11.7-14.9 SECONDS Normal PROTIME 12.5 LAB L300.4200 Normal INR 0.9 Performed By: #### L300.3900, L300.4310 #### [facility] Laboratory [address] [place], [address] PARTIAL THROMBOPLAST Collected: 02/12/2018 Status: F Source: [place] TIME 1:24 PM [facility] REPOSITORY TYPE CODE TESTS RESULT OUT OF RANGE REFERENCE UNITS LAB L300.4310 24.1-36.2 Seconds Normal PTT 24.6 Performed By: #### L300.3900, L300.4310 #### [facility] Laboratory [address] [facility] [address] SERUM CREATININE AND Collected: 02/12/2018 Status: F Source: [place] GFR 1:24 PM [facility] REPOSITORY TYPE CODE TESTS RESULT OUT OF [...] By: #### L501.1105, L501.1400, L501.4100, L501.4405 #### [facility] [address] [place], [address] URIC ACID Collected: 02/12/2018 Status: F Source: [place] 1:24 PM [facility] REPOSITORY TYPE CODE TESTS RESULT OUT OF RANGE REFERENCE UNITS LAB L501.1400 2.6-6.0 mg/dL Normal URIC 3.7 Result Comment: The drugs N-Acetylcysteine and Metamizole may falsely depress this assay. Performed By: #### L501.1105, L501.1400, L501.4100, L501.4405 #### [facility] [address] [place], [address] AST(SGOT) Collected: 02/12/2018 Status: F Source: FELI 1:24 PM [facility] REPOSITORY TYPE CODE TESTS RESULT OUT OF RANGE REFERENCE UNITS LAB L501.4100 15-37 U/L Low AST 13 Performed By: #### L501.1105, L501.1400, L501.4100, L501.4405 #### [facility] [address] [place], [address] ALANINE AMINOTRANSFERAS Collected: 02/12/2018 Status: F Source: FELI (SGPT) 1:24 PM [facility] REPOSITORY TYPE CODE TESTS RESULT OUT OF RANGE REFERENCE UNITS LAB L501.4405 13-56 U/L Normal ALT 18 Performed By: #### L501.1105, L501.1400, L501.4100, L501.4405 #### [facility] [address] [place], [address] PROTEIN+CREATININE Collected: Status: F Source: FELI RATIO,URINE 02/12/2018 1:15 PM [facility] REPOSITORY TYPE CODE TESTS RESULT OUT OF RANGE REFERENCE UNITS LAB L501.1200 NO RANGE EST. mg/dL Normal UR CREAT 76.40 LAB L501.1930 <11.9 mg/dL High 16.3 PROTEIN,UR.R AN. LAB L501.1940 0-200 mg/g CRE High PROT:CRE 213 RATIO Performed By: #### L501.0900 #### [facility] [address] [place], [address] Observed: 01/29/2018 Status: F Source: FELI CULTURE, GROUP B 1:30 PM [facility] STREPTOCOCCUS REPOSITORY Comments: VAGINAL/RECTAL PATI Culture ORGANISM 1: Streptococcus agalactiae (B) Amount Growth Growth Streptococcus agalactiae (B): REACTION Ampicillin $ <=0.25 S Clindamycin $$ <=0.25 S Inducable Clindamycin Resistan - Linezolid $$$$ <=2 S Vancomycin $ 0.5 S (NF) indicates non-formulary drug at [facility]. Approval by Infectious Disease Specialist required before non-formulary drugs may be ordered and/or dispensed. * CLSI guidelines does not recommend testing of cephalosporins. This interpretation is deduced from Beta-lactam/penicillin results. Performed By: #### M100.1800 #### [facility] [address] [place], [place], [address] CBC-COMPLETE BLOOD CNT Collected: 12/04/2017 Status: F Source: FELI NO DIFF 8:45 AM [facility] REPOSITORY TYPE CODE TESTS RESULT OUT OF [...] MPV 10.3 Performed By: #### L100.0500 #### [facility] [address] [place], [place], [address] GLUCOSE CHALLENGE GEST Collected: 12/04/2017 Status: F Source: FELI 1H 50G 8:45 AM [facility] REPOSITORY TYPE CODE TESTS RESULT OUT OF RANGE REFERENCE UNITS LAB L501.0250 70-140 mg/dL Normal GLU GEST 134 50g 1H Performed By: #### L501.0250 #### [facility] [address] [place], [place], [address] CBC W/DIFF, AUTOMATED Collected: 07/12/2017 Status: F Source: FELI 12:09 PM [facility] REPOSITORY TYPE CODE TESTS RESULT OUT OF [...] Lymph 1.83 Performed By: #### L100.0100 #### [facility] [address] [place], [address] URINALYSIS, ROUTINE Collected: 07/12/2017 Status: F Source: FELI (DIPSTICK) 12:09 PM [facility] REPOSITORY Order Comment: How was Urine Obtained? [...] ESTERASE Negative Performed By: #### L400.2010 #### [facility] [address] [place], [place], [address] THYROID STIM HORMONE Collected: 07/12/2017 Status: F Source: FELI (TSH) 12:09 PM [facility] REPOSITORY TYPE CODE TESTS RESULT OUT OF RANGE REFERENCE UNITS LAB L501.9520 0.358-3.74 uIU/mL Normal TSH 1.75 Performed By: #### L501.9520 #### [facility] [address] [place], [place], [address] T AND S-NO Collected: 07/12/2017 Status: F Source: FELI CHARGE W/PNP 12:09 PM [facility] REPOSITORY Order Comment: Reason for Type AND Screen/Red Cells: Surgery? N TYPE CODE TESTS RESULT OUT OF RANGE REFERENCE UNITS LAB B10.0800 B Normal BLOOD POSITIVE TYPE GEL LAB B100.4050 Normal Ab SCREEN NEGATIVE GEL Performed By: #### B100.7550 #### [facility] [address] [place], [address] RUBELLA IGG Collected: 07/12/2017 Status: F Source: FELI 12:09 PM [facility] REPOSITORY TYPE CODE TESTS RESULT OUT OF RANGE REFERENCE UNITS LAB L509.4000 IU/mL Normal Rubella IgG 320.6 Result Comment: Antibody results Interpretation of Immune Status < 5 IU/ml Presumed Non-immune 5 - < 10 IU/ml Equivocal > or = 10 IU/ml Presumed Immune Performed By: #### L509.4000, L3890.6005 #### [facility] [address] [place], [place], [address] HIV - [facility] Collected: 07/12/2017 Status: F Source: [place] 12:09 PM [facility] REPOSITORY TYPE CODE TESTS RESULT OUT OF RANGE REFERENCE UNITS LAB L3890.6005 Nonreactive Normal HIV - [facility] Non-Reactive Performed By: #### L509.4000, L3890.6005 #### [facility] [address] [place], [place], [address] HEPATITIS B SURFACE Collected: 07/12/2017 Status: F Source: FELI AG 12:09 PM [facility] REPOSITORY TYPE CODE TESTS RESULT OUT OF RANGE REFERENCE UNITS LAB L3100.0400 Negative Normal HB Negative SURF AG Result Comment: Performed at: [facility] [address] [id number] [employer] Machine Operator: Edwardo Whelan PhD, Phone: [phone] Performed By: #### L3100.0390, L3100.0625 #### [facility] (refer to report for specific site) refer to report for address and phone number HEPATITIS C ANTIBODIES Collected: 07/12/2017 Status: F Source: FELI 12:09 [facility] REPOSITORY TYPE CODE TESTS RESULT OUT OF RANGE REFERENCE UNITS LAB L3100.0650 0.0-0.9 s/co ratio Normal HEP C AB <0.1 Result Comment: Negative: < 0.8 Indeterminate: 0.8 - 0.9 Positive: > 0.9 The CDC recommends that a positive HCV antibody result be followed up with a HCV Nucleic Acid Amplification test (943123). Performed By: #### L3100.0390, L3100.0625 #### [facility] (refer to report for specific site) refer to report for address and phone number RPR Collected: 07/12/2017 Status: F Source: [place] 12:09 PM [facility] REPOSITORY TYPE CODE TESTS RESULT OUT OF REFERENCE UNITS RANGE LAB L700.5100 NONREACTIVE Normal RPR NONREACTIVE Performed By: #### L700.5100 #### [facility] [address] [place], [address] CT/NG [facility] BY PCR Collected: 07/03/2017 Status: F Source: [place] 11:30 AM [facility] REPOSITORY TYPE CODE TESTS RESULT OUT OF RANGE REFERENCE UNITS LAB L8200.2100 Negative Normal Chlam Negative Trac PCR LAB L8200.2200 Negative Normal NG by Negative PCR Performed By: #### L8200.2000 #### [facility] [address] [place], [address] PAP I-G W/RFX HRHPV Collected: 07/03/2017 Status: F Source: [place] 11:30 AM [facility] REPOSITORY Order Comment: CYTOLOGY INFORMATION: - CLINICAL INFORMATION: - DATE LMP/MENOPAUSE: LMP/ NOT GIVEN - COLLECTION VIAL: Thin Prep Vial - METAL DRAWER SOURCE: CERVICAL/ENDOCERVICAL - COLLECTION TECHNIQUE: BRUSH/SPATULA Specimen Comment: [id number] Specimen Comment: No. of containers..01 ThinPrep Vial TYPE CODE TESTS RESULT OUT OF RANGE REFERENCE UNITS LAB L7400.0800 . Normal DIAGN Comment Result Comment: NEGATIVE FOR INTRAEPITHELIAL LESION AND MALIGNANCY. LAB L7400.0900 . Normal ADEQ Comment Result Comment: Satisfactory for evaluation. Endocervical and/or squamous metaplastic cells (endocervical component) are present. LAB L7400.1400 . Normal PERFORM Comment Result Comment: Dank Deng, Consumer Attorney (ASCP) LAB L7400.2575 . Normal TEST METHOD [...] no HPV testing was performed. Performed at: - [facility] [place] [id number] [place] Machine Operator: Taylor Navas MD, Phone: [phone] Performed By: #### L7400.0350 #### [facility] (refer to report for specific site) refer to report for address and phone number VARIS Collected: 05/16/2017 Status: F Source: [facility] 10:50 AM [facility] REPOSITORY TYPE CODE TESTS [...] is required. Performed By: #### VARIS #### [place] [address] ALLERGIES ALLERGIES DATE TYPE / CODE NAME / CODE REACTION SEVERITY SOURCE 02/16/2018 Drug No Known Unknown [facility] Allergy/4160 Allergies/F00 [facility] [address](SNOMED 9413070(RXNOR Repository CT) M) ENCOUNTERS ENCOUNTERS ADMIT/DISCHARGE ACCOUNT NUMBER ADMITTING ENCOUNTER LOCATION SOURCE CLASS 03/01/2018/03/03/20 [id number] [place], Inpatient [place] [address] Melissa Encounter [facility] ding:WPRoom: Repository KH049Ame: 1 02/16/2018/02/17/20 [id number] Ambulatory [address] ding:WPOUTRo Repository om: WP014 02/12/2018 [id number] Ambulatory [facility] ding:WOBLAB Repository 01/29/2018 [id number] Ambulatory [facility] ding:LABSPEC Repository 01/23/2018/01/24/20 [id number] Ambulatory BBuilding:DIANELYS [address] Repository 01/23/2018/01/24/20 [id number] Ambulatory BBuilding:OL Edis[address] Repository 12/04/2017 [id number] Ambulatory [facility] ding:WOBLAB Repository 07/12/2017 [id number] Ambulatory [facility] ding:WOBLAB Repository 07/03/2017 [id number] Ambulatory [facility] ding:LABSPEC Repository 05/16/2017 [id number] Ambulatory EHSBuilding: [facility] Repository PAYERS PAYERS ENCOUNTER GUARANTOR PAYER SUBSCRIBER SOURCE 2018 NA ESPINOZA Primary [place]ORENO SANDSDOB: Feli [place] Insurance:ANTHEMPolic [id number] Number: Hospital [address]Jnt: 330 [id number] Repository [phone] () Date:7282-64-60CS [id number] [place] [address] 26267OB: 2018 Secondary NOT GIVENUNK Feli Insurance:SELF PAY [facility] Number: Effective Repository Date:2018-02-05 02/16/2018 NA Devan CONNER25 Primary [place] SANDSDOB: Feli [place] Insurance:ANTHEMPolic [id number] Number: Hospital [id number]: (330 [id number] Repository [phone] () Date:9085-02-98YC [id number] [place] [address]ZV: 02/16/2018 Secondary NOT GIVENUNK Feli Insurance:SELF PAY [facility] Number: Effective Repository Date:2018-02-16 02/12/2018 NA CONNER25 Primary [place]ORENO SANDSDOB: [place] Insurance:ANTHEMPolic [id number] Number: Hospital [address]Adi: (330) [id number] Repository [phone] () Date:7968-48-35IZ [id number] [place] [address]85[address]VQ: 02/12/2018 Secondary NOT GIVENUNK [place] Insurance:SELF PAY [facility]: Effective Repository Date:2018-02-12 01/29/2018 NA CONNER25 Primary MORENO SANDSDOB: Feli [place] Insurance:ANTHEMPolic [id number] Number: [facility] [address]Hfk: (330) [id number] Repository [phone] () Date:4155-09-70GW [id number] [place] [address] 13841TT: 01/29/2018 Secondary NOT GIVENUNK Feli Insurance:SELF PAY [facility] Hospital Number: Effective Repository Date:2018-01-29 01/23/2018 NAML AGUILARSDOB: Primary NA SANDSDOB: [address] Insurance:Parakey [id number] [facility] S [facility] Repository [facility], [place] Number: [place], [place] [address]Xfw: (330) [id number]: () Date:2018-01-23 [id number] ()Tel: (330) Name:[facility] [address] () [address], [place] [address]HG: 01/23/[address] Primary NA [facility] SANDSDOB: Insurance:ANTHbubl SANDSDOB: [facility] S [facility] [id number] [facility] Number: S [facility] [place], [place] [id number] [place] [address]~JORGE_BELEN Date:2018-01-23 [id number]: 330) [email or web address] [facility].HI [id number] [phone] MTel: (330) Name:[address]OX (HP) [address], [place] [phone] (WP) (HP)Tel: [phone]: () [phone] 12/04/2017 NA ESPINOZA Primary [place] SANDSDOB: Feli [place] Insurance:ANTHEMPolic [id number] Number: Hospital [id number]: 330) [id number] Repository [phone] () Date:5643-65-90VF [address], [place] [address]ID: 12/04/2017 Secondary NOT GIVENUNK [place] Insurance:SELF PAY [facility] Hospital Number: Effective Repository Date:2017-12-04 07/12/2017 NA ESPINOZA [facility]eli [place] Insurance:ANTHEMPolic [id number] Number: Hospital [id number]: (330 [id number] Repository [phone] () Date:3228-30-45JA [address] [address]TM: 07/12/2017 Secondary NOT GIVENUNK Feli Insurance:SELF PAY [facility] Hospital Number: Effective Repository Date:2017-07-12 07/03/2017 NA ESPINOZA S Primary [facility] Feli [place] Number: Hospital [id number]: . () [id number] Repository Date:6637-63-62HA [address] [address]LC: 07/03/2017 Secondary NOT GIVENUNK Feli Insurance:SELF PAY [facility] Hospital Number: Effective Repository Date:2017-07-03
== END 2018-02-16 19:35 | disposition other institution (70) ==
LOC: WPOUT 18:35 → WP 18:36
PROVIDERS: Referring Provider Obstetrics & Gynecology; Visit Provider Obstetrics & Gynecology
DX: Z34.93 Encounter for supervision of normal pregnancy, unspecified, third trimester (principal)
CPT/HCPCS: 59025; 99218; G0378

== ENCOUNTER 2018-03-01 04:35 | Inpatient (IN) | payer BC, SELFPAY ==
[2018-03-01 05:09] VITALS: BMI 35.3
[2018-03-01] MEDS: 0.9% Saline Lock 10 ML Syringe IV ×2 (05:15→09:30)
[2018-03-01] MEDS: Lactated Ringers 1,000 ML 50 ML IV (05:29)
[2018-03-01 05:41] LABS: Hematocrit 36.3 % (37-47); Hemoglobin 12.3 g/dl (12.0-15.0); Mean Corp Hgb Conc 33.9 g/gl (32-36); Mean Corpuscular Hgb 28.9 pg (27.0-32.0); Mean Corpuscular Volume 85.4 fL (81-99); Mean Platelet Vol. 10.4 fl (6.2-12.0); Platelet Count 216 K/mm3 (150-450); RBC Distribution Width CV 14.3 % (11.6-14.6); Red Blood Count 4.25 M/mm3 (4.2-5.4); White Blood Count 9.4 K/mm3 (4.4-11.0)
[2018-03-01 05:43] LABS: Scan Indicated on CBC? Y/N NO
--- NOTE | 2018-03-01 09:20 | PN_ITS ---
Progress Note Going natural. Feeling urge to push. AVSS EFM reassuring 130-140s avg variability. Accels to 160s+ UCs q 3-4 min , poor merchandise pickup/receiving associate at times. CX; 8/100/-2 IBOW. LOP AROM clear A/P: spont labor 40 3/7 wk EGA. AROM. Continue labor. Position changes to facilitate rotation and descent.
[2018-03-01] MEDS: Oxytocin 30 units/NS 500 ml 30 UNITS/500 ML IV.SOLN 334 UNITS IV (10:40)
[2018-03-01] MEDS: Oxytocin 30 units/NS 500 ml 30 UNITS/500 ML IV.SOLN 167 UNITS IV (11:30)
[2018-03-01] MEDS: Methylergonovine 0.2 MG/ML Ampul IM (11:40)
--- NOTE | 2018-03-01 15:14 | PCM.OB.VAG ---
Vaginal Delivery Maternal Presentation: Active Labor 40 3/7 wk spontaneous labor. Amniotic Membrane Rupture Type: Artificial Amniotic Fluid Description: Clear Final CYDNEY: 02/26/18 Gestational age: 40 Weeks and 3 Days Date of Procedure: 03/01/18 Pre-Operative Diagnosis: 40 3/7 wk labor. Post-Operative Diagnosis: Same Surgery/ Procedure Performed: Spontaneous Vaginal Delivery Type of Anesthesia: None Description of Procedure: of a parks viable female over intact perineum to lacerations. Head delivered KARENA. With continued maternal pushing, and rotation of shoulders R arm delivered. Baby then delivered. OP and nares bulb suctioned after delivery. Infant to maternal abdomen for drying and stimulation. Vigorous cry noted. Delayed cord clamping. Cord then clamped x two and cut. Routine gases collected. PP exam: 1st deg vaginal laceration and bilateral anterior labia minora lacerations. All hemostatic. no repair. Placenta delivered by spont expulsion. 3V cord, normal appearing , intact with trailing membranes. Presentation: Vertex Placental Delivery Description: Spontaneous Placenta Disposition: [facility] Cord Vessel Description: 3 Vessels Cord Gases drawn per routine: ABG, VBG Cord Entanglement: None Estimated Blood Loss: 350 Infant A gender: Female (1 minute): 8 (5 minute): 9 Episiotomy Description: None Laceration: Perineal Extension/lac, Vaginal Extension/lac, 1st degree Medications given after delivery: IV Pitocin Complications: None
--- NOTE | 2018-03-01 15:21 | PCM.DCVAG ---
Discharge Diet: No Restrictions Discharge Activity: May Shower, May Take a Tub Bath Return to work on:: 04/16/18 May resume sexual activity in: 4-6 weeks Additional Instructions: If you experience any of the following, contact your healthcare provider. Bleeding that soaks a pad every hour for 2 hours Fever 100.4 or higher Unrelieved abdominal pain Problems urinating (including inability to urinate or burning while urinating). Visual changes Severe headache Flu-like symptoms Pain or redness in one of both of your breasts Pain, warmth, tenderness or swelling in your legs, especially the calf area Frequent nausea and vomiting Symptoms of depression or anxiety If you experience any of the following, call 911 or go to the nearest Emergency Room. Chest pain Problems breathing Seizure activity Partial or complete paralysis of a body part, slurred speech, weakness or drooping of the face, or a sudden inability to walk or hold your balance Allergies/Adverse Reactions: Allergies No Known Allergies Allergy (Verified 02/16/18 18:42) Medications to take at Discharge Vits [Prenatabs FA] 1 tablet PO DAILY 02/16/18 Please Follow Up With: Melissa Weathers MD - [phone] When: Call to make an appointment with your doctor in 6 weeks. Test Results: Test results from this visit will be discussed in further detail at your follow-up appointment, if applicable. Proposed Discharge Date: 03/03/18
--- NOTE | 2018-03-01 15:23 | DCINST_ITS ---
Discharge Diet: No Restrictions Discharge Activity: May Shower, May Take a Tub Bath Return to work on:: 04/16/18 May resume sexual activity in: 4-6 weeks Additional Instructions: If you experience any of the following, contact your healthcare provider. * Bleeding that soaks a pad every hour for 2 hours * Fever 100.4 or higher * Unrelieved abdominal pain * Problems urinating (including inability to urinate or burning while urinating). * Visual changes * Severe headache * Flu-like symptoms * Pain or redness in one of both of your breasts * Pain, warmth, tenderness or swelling in your legs, especially the calf area * Frequent nausea and vomiting * Symptoms of depression or anxiety If you experience any of the following, call 911 or go to the nearest Emergency Room. * Chest pain * Problems breathing * Seizure activity * Partial or complete paralysis of a body part, slurred speech, weakness or drooping of the face, or a sudden inability to walk or hold your balance Allergies/Adverse Reactions: Allergies No Known Allergies Allergy (Verified 02/16/18 18:42) Medications to take at Discharge Vits [Prenatabs FA] 1 tablet PO DAILY 02/16/18 Please Follow Up With: Melissa Weathers MD - [phone] When: Call to make an appointment with your doctor in 6 weeks. Test Results: Test results from this visit will be discussed in further detail at your follow- up appointment, if applicable. Proposed Discharge Date: 03/03/18
[2018-03-01 16:00] VITALS: BP 142/77; PULSE 110; RESP 18; TEMP 36.8
[2018-03-01] MEDS: Ibuprofen 600 MG Tablet PO (16:32)
[2018-03-01 20:36] VITALS: BP 129/78; PULSE 91; RESP 16; TEMP 36.7
[2018-03-02] VITALS: BP 145/84; PULSE 87; RESP 16; TEMP 37.1
[2018-03-02 04:00] VITALS: BP 114/79; PULSE 86; RESP 18; TEMP 36.8
[2018-03-02 07:45] VITALS: BP 135/77; PULSE 86; RESP 16; TEMP 36.7; O2SAT 99
--- NOTE | 2018-03-02 08:35 | PCM.PN.OB ---
Subjective: PPD#1 Baby nursing well. Some cramping with nursing, but states 1/10 pain and no med required . She was GBS positive. Advised may stay until 03/03/18 for assistance with nursing. Baby may need to stay for obs 2/2 the GBS positive, adequately treated in labor. Objective: Lying semirecumbent in bed, nursing baby - Physical Exam General: Alert, Oriented x3, Cooperative, No apparent distress HEENT: Atraumatic Neck: Supple Neurological: Cranial nerves II-XII grossly intact Psych/Mental Status: Normal Affect Vital Signs Temp Pulse Resp BP Pulse Ox 98.1 F 86 16 135/77 H 99 03/02/18 07:45 03/02/18 07:45 03/02/18 07:45 03/02/18 07:45 03/02/18 07:45 Oxygen Delivery Method Room Air Weight: 102.3 kg Body Mass Index (BMI) 35.3 Intake and Output for Last 24 Hours 02/28/18 03/01/18 03/02/18 23:59 23:59 23:59 Output Total 800 / 800 Balance -800 / -800 Medical Necessity - Tobacco Use Smoking Status: Never smoker Assessment/Plan PPD#1 Stable pp. Continue care.
[2018-03-02 12:00] VITALS: BP 128/74; PULSE 70; RESP 18; TEMP 36.8; O2SAT 99
[2018-03-02 15:52] VITALS: BP 128/74; PULSE 76; TEMP 36.7
[2018-03-02 19:45] VITALS: BP 140/67; PULSE 103; RESP 18; TEMP 37.7; O2SAT 96
[2018-03-03 01:39] VITALS: BP 134/76; PULSE 82; RESP 16; TEMP 37; O2SAT 98
[2018-03-03 09:58] VITALS: BP 138/80; PULSE 91; RESP 18; TEMP 37.4
--- NOTE | 2018-03-03 10:17 | PCM.PN.OB ---
Subjective: PPD#2 Doing well. Nursing. Baby is under bili lights. Hoping for dischg today. Minimal pain. No meds taken. Nipples a little sore and baby with preference to one side. - Physical Exam General: Alert, Oriented x3, Cooperative, No apparent distress HEENT: Atraumatic Neck: Supple Abdomen: Soft Neurological: Cranial nerves II-XII grossly intact Psych/Mental Status: Normal Affect Vital Signs Temp Pulse Resp BP Pulse Ox 99.3 F H 91 18 138/80 H 98 03/03/18 09:58 03/03/18 09:58 03/03/18 09:58 03/03/18 09:58 03/03/18 01:39 Oxygen Delivery Method Room Air Weight: 102.3 kg Body Mass Index (BMI) 35.3 Intake and Output for Last 24 Hours 03/01/18 03/02/18 03/03/18 23:59 23:59 23:59 Output Total 800 / 800 Balance -800 / -800 Medical Necessity - Tobacco Use Smoking Status: Never smoker Assessment/Plan PPD#2 Stable pp. Continue care. dischg home today. Eligible for hotel status if baby is not released. RTO in 6 wk for pp check, prn sooner.
[2018-03-03 14:00] VITALS: BP 146/86; PULSE 93; RESP 16; TEMP 37.2
[2018-03-03 18:00] VITALS: BP 145/80; PULSE 101; RESP 16; TEMP 37.2
--- NOTE | 2018-03-03 19:26 | NURSING ---
1900 Discharged to home with baby. States she feels good and able to care for herself and her baby. Parents advised of need for bili labs tomorrow. 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
== END 2018-03-03 19:10 | disposition home or self-care (01) | DRG 806 ==
PROVIDERS: Obstetrics & Gynecology; Admitting Provider Obstetrics & Gynecology; Referring Provider Obstetrics & Gynecology; Visit Provider Obstetrics & Gynecology
DX: O70.0 First degree perineal laceration during delivery (principal); O98.82 Other maternal infectious and parasitic diseases complicating childbirth; Z37.0 Single live birth; B95.1 Streptococcus, group B, as the cause of diseases classified elsewhere; Z3A.40 40 weeks gestation of pregnancy
CPT/HCPCS: 59025; 59050; 85027; 86850; 86900; 99218; J7120; A4216; G0378; J0290

== ENCOUNTER → 2019-03-13 10:55 | Outpatient (CLI) | payer OTHER, SELFPAY ==
[2019-03-13 12:40] LABS: Absolute Lymphocyte Count 1.36 X10^3/uL (0.83-4.51); Absolute Neutrophil Count 7.4 X10^3/uL (2.0-7.7); Basophil# 0.02 X10^3/uL; Basophil% 0.2 % (0-1); Eosinophil# 0.22 X10^3/uL; Eosinophils% 2.3 % (0-5); Hematocrit 39.5 % (37-47); Hemoglobin 13.2 g/dL (12.0-15.0); Lymphocyte # 1.36 X10^3/ul (4.0); Lymphocyte % 14.1 % (19-41); Mean Corp Hgb Conc 33.4 g/dL (32-36); Mean Corpuscular Hgb 28.9 pg (27.0-32.0); Mean Corpuscular Volume 86.6 fL (81-99); Mean Platelet Vol. 10.4 fl (6.2-12.0); Monocyte# 0.62 X10^3/uL; Monocyte% 6.4 % (0-10); NRBC Flagged by Analyzer 0 % (0-5); Neutrophil % 76.8 % (47-70); Platelet Count 281 K/mm3 (150-450); RBC Distribution Width CV 13.8 % (11.6-14.6); Red Blood Count 4.56 M/mm3 (4.2-5.4); White Blood Count 9.6 K/mm3 (4.4-11.0)
[2019-03-13 12:48] LABS: Color, Urine Yellow (Yellow); Glucose, Dipstick Normal (Normal); Ketone-Dipstick Negative (Negative); Leukocyte Esterase-Dipstick 500 /ul (Negative); Nitrite-Dipstick Negative (Negative); Occult Blood-Urine Negative /ul (Negative); Protein-Dipstick Negative (Negative); Specific Gravity, Urine 1.015 (1.002-1.030); Urine Bilirubin Dipstick Negative (Negative); Urine Clarity Sl. Cloudy (Clear); Urine Urobilinogen Normal (Normal)
[2019-03-13 13:09] LABS: Thyroid Stim Hormone (TSH) 1.41 uIU/mL (0.358-3.74)
[2019-03-13 14:02] LABS: Hepatitis B Surface Antigen Non-Reactive (Nonreactive); Hepatitis C Antibody Non-Reactive (Nonreactive); Rubella IgG 305.5 IU/mL
[2019-03-13 14:20] LABS: Chlamydia Trachomatis by PCR Negative (Negative); Neisserai gonorrhoeae by PCR Negative (Negative); Probe Check PASS; Sample Adequacy Control PASS; Specimen Processing Control PASS
[2019-03-13 19:41] LABS: Prenatal RPR NONREACTIVE (NONREACTIVE)
[2019-03-14 16:15] LABS: HIV - WCH Non-Reactive (Nonreactive)
== END ==
PROVIDERS: Visit Provider Obstetrics & Gynecology
DX: Z34.81 Encounter for supervision of other normal pregnancy, first trimester (principal)
CPT/HCPCS: 36415; 81002; 84443; 85025; 86703; 86762; 86803; 87340; 87491; 87591

== ENCOUNTER → 2019-07-10 | Outpatient (CLI) | payer BC, OTHER, SELFPAY ==
[2019-07-10 14:14] LABS: Hemoglobin 11.6 g/dL (12.0-15.0); Mean Corp Hgb Conc 32.2 g/dL (32-36); Mean Corpuscular Hgb 27.3 pg (27.0-32.0); Mean Corpuscular Volume 84.7 fL (81-99); Mean Platelet Vol. 10.9 fl (6.2-12.0); Platelet Count 259 K/mm3 (150-450); RBC Distribution Width CV 14.6 % (11.6-14.6); RBC Distribution Width SD 44.3 fl (35.1-43.9); Red Blood Count 4.25 M/mm3 (4.2-5.4); White Blood Count 11.7 K/mm3 (4.4-11.0)
[2019-07-10 14:21] LABS: Glucose Challenge Gest 1H 50g 100 mg/dL (70-140)
== END | disposition home or self-care (01) ==
LOC: LABSPEC 13:18
PROVIDERS: Referring Provider Obstetrics & Gynecology; Visit Provider Obstetrics & Gynecology
DX: Z34.83 Encounter for supervision of other normal pregnancy, third trimester (principal)
CPT/HCPCS: 82950; 85027

== ENCOUNTER → 2019-09-04 | Outpatient (CLI) | payer OTHER, SELFPAY | END | disposition home or self-care (01) | LOC: LABSPEC 09-05 10:08 | PROVIDERS: Visit Provider Obstetrics & Gynecology | DX: Z36.85 Encounter for antenatal screening for Streptococcus B (principal) | CPT/HCPCS: 87081 ==

== ENCOUNTER → 2019-09-11 13:56 | Outpatient (CLI) | payer BC, SELFPAY ==
[2019-09-11 15:08] LABS: Hematocrit 34.9 % (37-47); Hemoglobin 10.7 g/dL (12.0-15.0); Mean Corp Hgb Conc 30.7 g/dL (32-36); Mean Corpuscular Hgb 24.2 pg (27.0-32.0); Mean Corpuscular Volume 78.8 fL (81-99); Platelet Count 289 K/mm3 (150-450); RBC Distribution Width CV 15.9 % (11.6-14.6); RBC Distribution Width SD 44.8 fl (35.1-43.9); Red Blood Count 4.43 M/mm3 (4.2-5.4); White Blood Count 14.4 K/mm3 (4.4-11.0)
[2019-09-11 15:16] LABS: Protein, Urine (Random) 12.9 mg/dL (<11.9)
[2019-09-11 15:49] LABS: AST(SGOT) 15 U/L (15-37); Alanine Aminotransfer ALT/SGPT 21 U/L (13-56); Uric Acid 4.5 mg/dL (2.6-6.0)
== END ==
PROVIDERS: Visit Provider Obstetrics & Gynecology
DX: O13.9 Gestational [pregnancy-induced] hypertension without significant proteinuria, unspecified trimester (principal); Z3A.00 Weeks of gestation of pregnancy not specified
CPT/HCPCS: 36415; 84156; 84450; 84460; 84550; 85027

== ENCOUNTER → 2019-09-22 10:31 | Outpatient (CLI) | payer BC, SELFPAY | PROVIDERS: Referring Provider Obstetrics & Gynecology; Visit Provider Obstetrics & Gynecology | DX: Z11.59 Encounter for screening for other viral diseases (principal) | CPT/HCPCS: 87635; G2023; U0003 ==

== ENCOUNTER 2019-09-23 21:10 | Inpatient (IN) | payer BC, SELFPAY ==
[2019-09-23] VITALS (9 sets, daily range): BP systolic 139–176; BP diastolic 76–89; PULSE 110–118; TEMP 37.6–37.7; O2SAT 99
--- NOTE | 2019-09-23 | PLAC_PTH ---
PATIENT: NA MARIE LOC: [facility] U#:[id number] AGE/SX: 29/F ROOM: WP006 RE09/23/[address]: Denise Barrera CNM : 1990 BED: 1 DIS: 09/25/2019 SPEC #: [id number] RECD: 09/24/19 06:59 STATUS: AIRAM REMariel #: [id number] LAY: 09/23/19 00:[address]: Denise Barrera DEPT: SURGICAL PATHOLOGY RECD BY: Michi Wells ENTERED: 09/24/19 07:47 SP TYPE: PLACENTA OTHR DR: Dr. Yumiko Zuleta, DO Tissues: Placenta, NOS Procedures: Surgery Specimen Level V HEADER OPERATION: Vaginal delivery PRE-OP DIAGNOSIS: 10% abruption TISSUE SUBMITTED: Placenta MICROSCOPIC DIAGNOSIS Placenta: Placental disc - third trimester placenta (736 gm). - Focal areas of peripheral infarction (2.5 and 3 cm in greatest dimension). - Detached blood clots (weighing 70 gm), clinically abruption. Membranes - no pathologic diagnosis. Umbilical cord - three blood vessels and no pathologic diagnosis. SJ:luz 09/26/19 MICROSCOPIC DESCRIPTION Slides are reviewed. GROSS DESCRIPTION SPECIMEN: PLACENTA / CLINICAL INFORMATION: A. Weight: 4.26 kg B. Gestational Age: 39 weeks C. Sex: Male PLACENTAL WEIGHT (POST FIXATION): 736 gm PLACENTAL DIMENSIONS: 16 x 17 x 4.5 cm PLACENTAL SHAPE: Usual ovoid PLACENTAL WEIGHT FOR GESTATIONAL AGE: >99th percentile MEMBRANES - Present A. Insertion: Marginal B. Site of rupture from edge: At edge of placental disc C. Color of membrane: Gentile mucoidy D. Abnormalities: A few blood clots are noted adherent to the membranes. UMBILICAL CORD - Present A. Color: Gentile-colindres B. Insertion: Central C. Length: 44 cm D. Diameter: 1.5 cm E. Number of vessels: Three F. Abnormalities: None PLACENTAL DISC - Present A. Color of surface: Gentile-colindres B. surface abnormalities: None C. Maternal cotyledons: Intact with minimal tears D. Attached retro placental clot: No clot E. Cut surface: Dark red and spongy F. Lesions: Sections reveal two gentile, indurated areas in the peripheral portion of the placenta measuring 2.5 and 3 cm in greatest dimension. G. Separate clot: Multiple detached blood clots are noted weighing in aggregate 70 gm and measuring in aggregate 9 x 9 x 3 cm. SECTIONS SUBMITTED: 1. Membrane roll 2. Cord, maternal end 3. Cord, end 4. Placental disc, and maternal surfaces 5. Placental disc, and maternal surfaces, smaller lesion 6. Placental disc, and maternal surfaces, larger lesion KAVEH:luz 09/25/19 TC:5 CPT: 55677
[2019-09-23] MEDS: Lactated Ringers 1,000 ML 50 ML IV (21:30)
--- NOTE | 2019-09-23 21:45 | HP.PCM_ITS ---
- Problem List (1) 39 weeks gestation of Status: Acute History Date of Admission: 09/23/19 Final CYDNEY: 09/28/19 Final CYDNEY Source: US <20 weeks Gestational age: 39 Weeks and 2 Days History of this : This is a 29 year-old, G [2], P [1], at 39 weeks gestational age. Allergies No Known Allergies Allergy (Verified 09/23/19 21:18) Home Medications: Home Medications Vits [Prenatabs FA] 1 tablet PO DAILY 02/16/18 Smoking Status: Never smoker Alcohol: None Substance Use Type: Anxiety Medications Number of Fetus(es): 1 NST - FHR Rate Baby A Baseline: 150 Variability:: Moderate Accelerations:: 15 x 15 Decelerations:: None NST Reactive:: Yes FHR Category:: Category I Uterine Activity:: Q1.5-4m History Past Pregnancies: Past Pregnancies: PRIOR DELIVERY HISTORY DEL DATE GEST LAB WT LB WT OZ TYPE ANES LABOR TX 27 Feb 18 40 10 8 8 Vag None No Labs: Mom's Labs & Results 09/23/19 09/23/19 09/23/19 21:30 21:30 21:30 WBC 13.3 H RBC 4.43 Hgb 10.5 L Hct 33.6 L MCV 75.8 L MCH 23.7 L MCHC 31.3 L RDW Std Deviation 44.4 H RDW Coeff of Linda 16.5 H Plt Count 250 MPV 10.7 Immature Gran % (Auto) 1.200 H Neut % (Auto) 83.1 H Lymph % (Auto) 8.1 L [place] % (Auto) 6.0 Eos % (Auto) 1.4 Baso % (Auto) 0.2 Absolute Neuts (auto) 11.0 H Absolute Lymphs (auto) 1.07 Nucleated RBC % 0.2 PT 12.9 INR 1.0 APTT 24.3 Creatinine Est GFR (MDRD) Af Amer Est GFR (MDRD) Non-Af Uric Acid AST ALT U Random Total Protein Urine Creatinine Protein/Creatinin Ratio COVID-19 (GALDINO) Blood Type B POSITIVE Antibody Screen NEGATIVE 09/23/19 09/23/19 09/23/19 21:30 22:08 23:05 WBC RBC Hgb Hct MCV MCH MCHC RDW Std Deviation RDW Coeff of Linda Plt Count MPV Immature Gran % (Auto) Neut % (Auto) Lymph % (Auto) [place] % (Auto) Eos % (Auto) Baso % (Auto) Absolute Neuts (auto) Absolute Lymphs (auto) Nucleated RBC % PT INR APTT Creatinine 0.49 L Est GFR (MDRD) Af Amer 192 Est GFR (MDRD) Non-Af 159 Uric Acid 4.9 AST 12 L ALT 20 U Random Total Protein 55.0 H Urine Creatinine 188.00 Protein/Creatinin Ratio 293 H COVID-19 (GALDINO) Pending Blood Type Antibody Screen Course Did the patient receive Yes care? Labs Blood Type: B RH: POSITIVE RPR/VDRL/Syphilis Nonreactive Rubella status Immune HbSAg Negative Date Done: 03/13/19 Chlamydia Negative Gonorrhea Negative HIV/AIDS Non-Reactive Group B Strep: Negative Current Obstetrical History Gestational Diabetes No Incompetent Cervix No Infertility No IUGR No Macrosomia No Hypertension/Pre-eclampsia Yes: elevated bp couple times in the office and upon admission Placenta Previa/Abruption No PTL/PROM No Uterine anomaly No Oligohydramnios No Polyhydramnios No Multiple gestation No Past Medical History Asthma No Diabetes No Hypertension No Heart disease No Mitral valve prolapse No Neurologic/Seizure disorder/ Yes: migraines Migraines Kidney disease No Liver disease No Varicosities No Clotting disorders/Hx of DVT No Thyroid Dysfunction No Other medical diseases Yes: pectus excavatum-dent in chest Psychiatric disorders Yes: anxiety Major trauma No Abnormal PAP smear No Sleep apnea No Mammogram in the last 2 years No Medications Taken During Dose/Freq.: [Antidepressant] 50mg daily Last Date/Time of Medication 09/23/19 Taken: [Antidepressant] Reason for taking medication [ anxiety Antidepressant] Social History Marital Status: Alleged father deyanira Antony Smoking No Smoking Status Never smoker Substance Use Type Anxiety Medications How long have you used on since april substances (years)? What date/time did you last 09/23/19 use any of the above? Expected Infant Delivery Method: Spontaneous Vaginal Number of Visits: 11 Review of Systems Constitutional: Denies: Chills, Fever, Weight Change HEENT: Denies: Head Aches, Sinus Congestion, Sinus Drainage Cardiovascular: Denies: Chest Pain, Palpitations Respiratory: Denies: Cough, Shortness of breath at rest, Sputum production Gastrointestinal: Denies: Abdominal Pain, Nausea, Vomiting Genitourinary: Denies: Dysuria Musculoskeletal: Denies: Joint Pain, Joint Tenderness Skin: Denies: Rash, Wounds Neurological: Denies: Numbness, Tingling, Focal weakness Psychiatric: Denies: Anxiety, Depression, Homicidal Ideations, Suicidal Ideations Hematologic/ Lymphatic: Denies: Easy Bruising, Easy Bleeding Physical Exam General: Alert, Oriented x3, No apparent distress HEENT: Atraumatic, Normocephalic. Negative for: Thyromegaly, Lymphadenopathy Cardiovascular: Regular rate, Regular Rhythm Lungs: Clear to auscultation Abdomen: Bowel Sounds Present, Gravid Neurological: Deep Tendon Reflexes 2+/4 and Symmetrical, Neuro grossly intact FOUNDRY SUPERVISOR: Normal external genitalia. Negative for: Vulvar lesions Estimated gestational size: Appropriate for gestational size Presentation: Cephalic Cervix Dilation (cm): 5 - per RN Station: -2 Effacement (%): 80 Assessment/Plan All Active Problems (This Medical Record has been edited. Action required.) 39 weeks gestation of (Acute) A/P: This is a 29 year-old, G [2], P [1], at 39 weeks gestational age. SVE 5/80/-2 per RN assess on admission UC Q1.5-4m NST Category I Active Labor Expect Procedure Criteria Procedure Type: Elective COVID Risk Discussion: The surgeon/proceduralist and patient have discussed in detail the risk of exposure to and/or potential harm posed by the COVID-19 virus with having a surgery/procedure at this time versus the risk of delaying the surgery/procedure. It is not possible to know either the risk of delaying the surgery or procedure or chance of getting an infection with perfect accuracy, but a joint decision was made between the patient and the surgeon/proceduralist to proceed at this time with the scheduled surgery/procedure as indicated on the consent form.
[2019-09-23 21:46] LABS: Absolute Lymphocyte Count 1.07 X10^3/uL (0.83-4.51); Basophil# 0.02 X10^3/uL; Basophil% 0.2 % (0-1); Eosinophil# 0.18 X10^3/uL; Eosinophils% 1.4 % (0-5); Hematocrit 33.6 % (37-47); Hemoglobin 10.5 g/dL (12.0-15.0); Lymphocyte # 1.07 X10^3/ul (4.0); Lymphocyte % 8.1 % (19-41); Mean Corp Hgb Conc 31.3 g/dL (32-36); Mean Corpuscular Hgb 23.7 pg (27.0-32.0); Mean Corpuscular Volume 75.8 fL (81-99); Mean Platelet Vol. 10.7 fl (6.2-12.0); Monocyte# 0.79 X10^3/uL; NRBC Flagged by Analyzer 0.2 % (0-5); Neutrophil # 11.04 X10^3/uL (2.7-7.7); Neutrophil % 83.1 % (47-70); Platelet Count 250 K/mm3 (150-450); RBC Distribution Width CV 16.5 % (11.6-14.6); RBC Distribution Width SD 44.4 fl (35.1-43.9); Red Blood Count 4.43 M/mm3 (4.2-5.4); White Blood Count 13.3 K/mm3 (4.4-11.0)
[2019-09-23 22:01] LABS: Prothrombin Time (Protime)PT. 12.9 SECONDS (11.7-14.9)
[2019-09-23 22:02] LABS: Partial Thromboplast Time 24.3 Seconds (24.1-36.2)
[2019-09-23 22:21] LABS: AST(SGOT) 12 U/L (15-37); Alanine Aminotransfer ALT/SGPT 20 U/L (13-56); Creatinine, Serum 0.49 mg/dL (0.55-1.02); EST Glomerular Filtration Rate 159 mL/min (>60); Est Glom Filt Rate - Afr Amer 192 mL/min (>60); Uric Acid 4.9 mg/dL (2.6-6.0)
[2019-09-23] MEDS: Lactated Ringers 500 ML 999 ML IV (22:59)
[2019-09-23 23:17] LABS: Protein:Creat Ratio 293 mg/g CRE (0-200)
[2019-09-24] VITALS (27 sets, daily range): BP systolic 130–175; BP diastolic 64–95; PULSE 85–126; RESP 16–20; TEMP 36.5–37.9; O2SAT 94–97; BMI 36.7
[2019-09-24] MEDS: Oxytocin 30 units/NS 500 ml 30 UNITS/500 ML IV.SOLN 334 UNITS IV
--- NOTE | 2019-09-24 01:20 | OP.PCM_ITS ---
Problem List (1) 39 weeks gestation of Status: Acute Vaginal Delivery Maternal Presentation: Active Labor Amniotic Membrane Rupture Type: Spontaneous Amniotic Fluid Description: Moderate meconium Final CYDNEY: 09/28/19 Final CYDNEY Source: US <20 weeks Gestational age: 39 Weeks and 3 Days Date of Procedure: 09/23/19 Pre-Operative Diagnosis: Labor Post-Operative Diagnosis: Surgery/ Procedure Performed: Spontaneous Vaginal Delivery Type of Anesthesia: Local with 1% lidocaine Description of Procedure: Patient was FD at +3 station with spontaneous urge to push with precipitous labor. Moderate meconium noted. Customer Service Driver and respiratory therapy outside room when pushing began. She pushed well to deliver head in OA to SAL, loose nuchal noted, delivered through easily with body following head after one push. The was placed on the maternal abdomen. The cord was doubly clamped and cut by FOB under CNM supervision at approximately 4 minutes of life and further attended by nursery personnel. With gentle traction the placenta delivered spontaneously and appeared to have 10% abruption/infarct. To be sent to pathology. 2nd degree perineal, vaginal floor, and left labial laceration noted. CNM repaired deep vaginal floor laceration with a 3.0 double rapide under 1% lidocaine local anesthetic. Dr. Vivar called to finish repair of vaginal floor and left labial. EBL 350. Apgars 8/9. Sponge and needle count correct x 2. Presentation: Vertex, SAL Placental Delivery Description: Spontaneous Placenta Disposition: Routine to Lab Percentage of Placenta Abruption: 10 Cord Vessel Description: 3 Vessels Cord Entanglement: Around neck x 1, loose Estimated Blood Loss: 350 Infant A gender: Male (1 minute): 8 (5 minute): 9 Episiotomy Description: None Laceration: 2nd degree Medications given after delivery: IV Pitocin
[2019-09-24] MEDS: Acetaminophen 500 MG Tablet 1000 MG PO ×2 (02:15→11:10)
[2019-09-24] MEDS: 0.9% Saline Lock 10 ML Syringe IV (02:46)
--- NOTE | 2019-09-24 02:59 | NURSING ---
late entry 2140-pt states she has had a cough since last weekend, states its not new. 2252-called steven khan made aware of temp on admission and pt being treated for sinus infection, had covid test yesterday and results not back. to obtain a rapid covid test
[2019-09-24] MEDS: Ibuprofen 600 MG Tablet PO ×3 (05:16→19:49)
[2019-09-24 07:05] LABS: Pathology Specimen OB SEE PATHOLOGY REPORT
--- NOTE | 2019-09-24 08:15 | RAD_ITS ---
STUDY: X-RAY CHEST REASON FOR EXAM: Female, 29 years old. Shortness of breath, status post delivery TECHNIQUE: PA and lateral views of the chest. COMPARISON: None. FINDINGS: The lungs are clear and expanded. There is no demonstrated pleural abnormality. Normal size heart. Normal mediastinum and blank. Normal visualized pulmonary arteries. Normal visualized aortic arch and descending thoracic aorta. Normal visualized thoracic spine. Normal visualized ribs, clavicles, and shoulders. There is no demonstrated abnormality of the visualized soft tissue structures of the upper abdomen. RAD/Chest PA and Lateral IMPRESSION: Normal x-ray examination of the chest. Electronically Signed: Champ Ruelas MD at 8:38 EDT , Service support ,
[2019-09-24] MEDS: Senna/Docusate Sodium 1 Tablet PO (11:11)
[2019-09-24] MEDS: AMOXICILLIN 500 MG CAPSULE PO ×2 (11:24→22:55)
[2019-09-24] MEDS: Sertraline 50 MG Tablet PO (22:55)
== END 2019-09-25 01:40 | disposition home or self-care (01) | DRG 807 ==
LOC: WP 21:14 → WPOUT 09-24 09:06
PROVIDERS: Admitting Provider Obstetrics & Gynecology; Referring Provider Obstetrics & Gynecology; Visit Provider Obstetrics & Gynecology
DX: O69.81X0 Labor and delivery complicated by cord around neck, without compression, not applicable or unspecified (principal); O62.3 Precipitate labor; O70.1 Second degree perineal laceration during delivery; O77.0 Labor and delivery complicated by meconium in amniotic fluid; O99.344 Other mental disorders complicating childbirth; F41.9 Anxiety disorder, unspecified; Q67.6 Pectus excavatum; Z3A.39 39 weeks gestation of pregnancy; Z37.0 Single live birth
CPT/HCPCS: 59025; 59050; 71046; 82565; 82570; 84156; 84450; 84460; 84550; 85025; 85610; 85730; 86850; 86900; 86901; 87635; 88307; 99218; G2023; J7120; A4216; G0378; U0003